=== PATIENT | female | born 1960 | race Caucasian/White ===

== ENCOUNTER 2016-04-17 15:01 | Outpatient (CLI) | payer OTHER, BC ==
[~2016-04-17 15:01] MED LIST: ALPRAZOLAM0.25 MG PO; FLUOXETINE HCL20 MG PO; IBUPROFEN400 MG PO; MAGNESIUM30 MG PO; MULTIPLE VITAMIN PO; VICODIN EQUIVAL1 TAB PO; VITAMIN D-31000 UNIT PO
--- NOTE | 2016-04-17 17:28 | DIAGNOSTIC IMAGING REPORT ---
PROCEDURE: MG BILATERAL SCREENING W/CAD INDICATION: Screening, family history of breast cancer in the grandmother and early breast cancer in the sister. TECHNIQUE: Standard CC and MLO views bilaterally. Computer aided detection was used. COMPARISON: 04/12/2015, 04/05/2014, 04/09/2013 FINDINGS: Moderately dense fibroglandular tissue is present bilaterally. No developing densities, areas of architectural distortion, or suspicious microcalcifications. IMPRESSION: 1. Stable mammograms without radiographic evidence of malignancy. RESULT CODE: 1- Negative. A. A negative report should not delay biopsy if a dominant or clinically suspicious mass is present. 10-15% of cancers are not identified by x-ray. B. A negative report may reinforce clinical impression. C. Adenosis and dense breasts may obscure an underlying neoplasm. D. False positive reports average 6-10%. E.. A yearly screening mammogram is recommended. A reminder letter will be scheduled.
== END 2016-04-17 23:00 ==
LOC: MAM SRH 15:01
DX: Z12.31 Encounter for screening mammogram for malignant neoplasm of breast (principal); Z80.3 Family history of malignant neoplasm of breast